=== PATIENT | female | born 1970 | race Hispanic/Latino ===

== ENCOUNTER 2018-10-22 23:31 | Emergency (ER) | payer SELFPAY ==
[~2018-10-22] VITALS: Ht 149.9 cm; Wt 67.1 kg
--- OUTSIDE RECORDS SUMMARY | 2018-10-22 23:34 | XMS REPORT | Continuity of Care Document ---
Author Author [facility] [place] Interface Address Unknown Phone Unavailable Problems Problem Status Onset Date Classification Date Reported Comments Source Encounter for screening mammogram for malignant neoplasm of breast 03/18/2018 10/02/2018 MEGA Mcgregor N63 - UNSPECIFIED LUMP IN BREAST Active 09/12/2015 [facility] [place] R10.2 - PELVIC AND PERINEAL PAIN Active 07/12/2015 [facility] [place] Medications Medication Details Route Status Patient Instructions Ordering Provider Order Date Source Allergies, Adverse Reactions, Alerts Substance Category Reaction Severity Reaction type Status Date Reported Comments Source Immunizations Immunization Date Given Site Status Last Updated Comments Source Results Order Name Results Value Reference Range Date Interpretation Comments Source Breast Mammo Scrn MATTHEW incl CAD MA Breast Mammo Scrn MATTHEW incl CAD MA BILATERAL DIGITAL SCREENING MAMMOGRAM WITH CAD: 03/15/2018 CLINICAL: Routine/Screening. Current study was evaluated with a Computer Aided Detection (CAD) system. COMPARISON:Comparison is made to exams dated: 09/27/2015 mammogram, 09/07/2015 mammogram, and 03/16/2014 mammogram - [facility]. TECHNIQUE: Mammographic views were obtained using digital acquisition. Current study was also evaluated with a Computer Aided Detection (CAD) system. FINDINGS: There are scattered fibroglandular densities in both breasts. Bilateral breast implants are stable. There is a benign appearing cyst in the right breast. There also are benign appearing calcifications in both breasts. No significant masses, calcifications, or other findings are seen in either breast. There has been no significant interval change. IMPRESSION: BENIGN RECOMMENDATION:There is no mammographic evidence of malignancy. A 1 year screening mammogram is recommended.(03/16/2019) This exam was interpreted at [id number] for MARIO Mcgregor, 14. Professional services are provided by the [facility]. Jam Aguilar M.D., jp/reyes:03/15/2018 13:11:39 Infrastructure Security Architect(s): Elzbieta Alatorre RT(R)(M), [facility] letter sent: BI-RADS 1/2 Mammogram BI-RADS: 2 Benign 03/15/2018 - - Read by: Jam Aguilar MD Dictated Date/time: 03/15/18 13:11 Electronically Signed by: Jam Aguilar MD 03/15/18 13:11 FINAL REPORT MEGA Mcgregor Breast Complete Uni US Breast Complete Uni US - BREAST COMPLETE UNI US/R ULTRASOUND OF RIGHT BREAST AND RIGHT AXILLA: 09/27/2015 CLINICAL: N63 Unspecified Lump In Breast. Comparison is made to exams dated: 09/27/2015 mammogram, 09/07/2015 mammogram and 03/16/2014 mammogram - [facility]. Color flow and real-time ultrasound of the right breast and axilla were performed. Right breast implant is present and intact by ultrasound. There is a benign 0.6 cm x 0.5 cm x 0.2 cm oval cyst in the right breast at 10 o'clock middle depth 5 cm from the nipple. This oval cyst is anechoic. This correlates with mammography findings. Color flow imaging demonstrates that there is no vascularity present. No suspicious findings are seen in the right breast. No abnormalities were seen sonographically in the right axilla. IMPRESSION: BENIGN There is no sonographic evidence of malignancy. The 0.6 cm x 0.5 cm x 0.2 cm oval cyst in the right breast is benign. A 1 year screening mammogram is recommended. The findings and recommendations were discussed with the patient at the time of the exam. Susan Collazo M.D. ms/:09/27/2015 15:26:32 Infrastructure Security Architect: Salud Nicole, [facility] This exam was dictated and interpreted by [id number] for [place]. letter sent: Benign Right Ultrasound BI-RADS: 2 Benign 09/27/2015 - - Read by: Susan Collazo MD Dictated Date/time: 09/27/15 15:26 Electronically Signed by: Susan Collazo MD 09/27/15 15:26 FINAL REPORT MARIO Mcgregor Digital Mammo DX Uni MA Digital Mammo DX Uni MA - DIGITAL MAMMO DX UNI MA/R UNILATERAL RIGHT DIGITAL DIAGNOSTIC MAMMOGRAM WITH CAD: 09/27/2015 CLINICAL: N63 Unspecified Lump In Breast. Current study was evaluated with a Computer Aided Detection (CAD) system. Comparison is made to exams dated: 09/07/2015 mammogram and 03/16/2014 mammogram - [facility]. There are scattered fibroglandular densities in the right breast. Right silicone implant is stable and intact. There is a 6 mm oval equal density asymmetry with an obscured margin in the right breast middle depth superior region seen on the mediolateral oblique view only 4 cm from the nipple. No other significant masses or calcifications are seen in the breast. IMPRESSION: INCOMPLETE: NEEDS ADDITIONAL IMAGING EVALUATION The 6 mm oval equal density asymmetry in the right breast is indeterminate. An ultrasound is recommended. Susan Collazo M.D. ms/penrad:09/27/2015 15:15:03 Infrastructure Security Architect: Aleyda MAGALLON(Jeramy)(), [facility] This exam was dictated and interpreted by [id number] for Balbir. Mammogram BI-RADS: 0 Indeterminate 09/27/2015 - - Read by: Susan Collazo MD Dictated Date/time: 09/27/15 15:15 Electronically Signed by: Susan Collazo MD 09/27/15 15:15 FINAL REPORT [facility] [place] Digital Mammo Screening Matthew MA Digital Mammo Screening Matthew MA - DIGITAL MAMMO SCREENING MATTHEW MA BILATERAL DIGITAL SCREENING MAMMOGRAM WITH CAD: 09/07/2015 CLINICAL: Z12.31 Encounter For Screening Mammogram For Malignant Neoplasm Of Breast. Current study was evaluated with a Computer Aided Detection (CAD) system. Comparison is made to exam dated: 03/16/2014 mammogram - [facility]. There are scattered fibroglandular densities in both breasts. There is a 0.8 cm asymmetry in the right breast middle depth central to the nipple seen on the mediolateral oblique view only 4 cm from the nipple. No other significant masses, calcifications, or other findings are seen in either breast. IMPRESSION: INCOMPLETE: NEEDS ADDITIONAL IMAGING EVALUATION The 0.8 cm asymmetry in the right breast is indeterminate. Additional views with possible ultrasound are recommended. SUMMARY: The staff from [facility] will contact the patient to schedule the additional studies. A separate report will be issued following interpretation of the additional studies. Lamine Snider M.D., cm/penrad:09/10/2015 08:42:13 Infrastructure Security Architect: Elzbieta MAGALLON (R)(Jasmeet), [facility] This exam was dictated and interpreted by [id number] for MARIO Mcgregor. letter sent: Additional Imaging Mammogram BI-RADS: 0 Indeterminate 09/07/2015 - - Read by: Storm Wintre MD Dictated Date/time: 09/10/15 08:42 Electronically Signed by: Storm Winter MD 09/10/15 08:42 FINAL REPORT AMRIO [place] Pelvis w Pelvis Transvaginal US Pelvis w Pelvis Transvaginal US ULTRASOUND OF THE PELVIS History: 44-year-old female with irregular menstrual cycles and pelvic pain. TECHNIQUE: Real-time schmid-scale imaging supplemented with color Doppler of the pelvis was performed transabdominally through the distended urinary bladder and with transvaginal technique. COMPARISON: 09/06/2012 FINDINGS: The uterus is anteverted and relatively large. Uterine dimensions are 10.3 x 5.1 x 6.0 cm. The endometrium is 1.6 cm thick. The myometrium has heterogeneous echo structure with a right intramural 0.9 x 0.7 x 0.7 cm nodule or fibroid. There is no free fluid in the pelvis. Both ovaries have adequate perfusion. Right ovary dimensions are 1.6 x 0.9 x 1.7 cm. Left ovary dimensions are 1.9 x 2.9 x 1.7 cm. The left ovary has a dominant 1.6 cm follicle. IMPRESSION: Anteverted uterus with a 0.9 cm right intramural fibroid. The adnexal exam is normal with a left ovarian 1.6 cm follicle. 09/07/2015 - - Read by: Eric Reeves MD Dictated Date/time: 09/07/15 14:44 Electronically Signed by: Eric Reeves 09/07/15 14:51 FINAL REPORT MEGA [place] Spine lumbar series DX Spine lumbar series DX EXAMINATION: 1. Lumbar spine series 2. 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 There is a partially lumbarized S1 segment. There is normal alignment of the lumbar spine without listhesis. There is minimal L3-L4 and L4-L5 degenerative disc disease with intervertebral disc space narrowing and endplate spur formation. There are no pars interarticularis defects. There is no substantial facet osteoarthritis. The sacral ala are intact without displaced fractures of the sacrum identified. Multiple surgical clips are noted within the right upper quadrant of the abdomen. IMPRESSION: 1. Partially lumbarized S1 segment with minimal L3-L4 and mild L4-L5 degenerative disc disease. 2. No displaced fractures of the sacrum identified. 09/07/2015 - - Read by: Nick Andre MD Dictated Date/time: 09/07/15 13:31 Electronically Signed by: Nick Andre MD 09/07/15 13:35 FINAL REPORT MEGA Mcgregor Spine sacrum AP/Lat DX Spine sacrum AP/Lat DX EXAMINATION: 1. Lumbar spine series 2. 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 There is a partially lumbarized S1 segment. There is normal alignment of the lumbar spine without listhesis. There is minimal L3-L4 and L4-L5 degenerative disc disease with intervertebral disc space narrowing and endplate spur formation. There are no pars interarticularis defects. There is no substantial facet osteoarthritis. The sacral ala are intact without displaced fractures of the sacrum identified. Multiple surgical clips are noted within the right upper quadrant of the abdomen. IMPRESSION: 1. Partially lumbarized S1 segment with minimal L3-L4 and mild L4-L5 degenerative disc disease. 2. No displaced fractures of the sacrum identified. 09/07/2015 - - Read by: Nick Andre MD Dictated Date/time: 09/07/15 13:31 Electronically Signed by: Nick Andre MD 09/07/15 13:35 FINAL REPORT MEGA Mcgregor Chest 2 views DX Chest 2 views DX CHEST PA AND LATERAL History: 44-year-old female with cough Comparison: None Findings: Lungs: The lungs are partial expanded without an acute consolidation or infiltrate. Pleura: No pleural effusion. Mediastinum and cande: Unremarkable. Heart size: Normal. Skeletal: Unremarkable. IMPRESSION: There is no acute cardio pulmonary abnormality. 09/07/2015 - - Read by: Eric Reeves MD Dictated Date/time: 09/07/15 13:43 Electronically Signed by: Eric Reeves 09/07/15 13:44 FINAL REPORT MEGA Mcgregor Digital Mammo Screening Matthew MA Digital Mammo Screening Matthew MA - DIGITAL MAMMO SCREENING MATTHEW MA BILATERAL DIGITAL SCREENING MAMMOGRAM WITH CAD: 03/16/2014 CLINICAL: Annual Screening. Current study was evaluated with a Computer Aided Detection (CAD) system. No prior exams were available for comparison. There are scattered fibroglandular densities in both breasts. There is a benign calcification in the left breast. Bilateral breast implants are intact. No significant masses, calcifications, or other findings are seen in either breast. IMPRESSION: BENIGN There is no mammographic evidence of malignancy. A screening mammogram in one year is recommended. Michael jasmine/reyes:03/17/2014 07:34:37 Infrastructure Security Architect: Kamryn MAGALLON(R)(M), [facility] This exam was dictated and interpreted by [id number] for MARIO Mayes. letter sent: Normal exam Mammogram BI-RADS: 2 Benign 03/16/2014 - - Read by: Michael Aguilar MD Dictated Date/time: 03/17/14 07:34 Electronically Signed by: Michael Aguilar MD 03/17/14 07:34 FINAL REPORT MARIO Mcgregor Vital Signs Vital Sign Value Date Comments Source Encounters Location Location Details Encounter Type Encounter Number Reason For Visit Attending Provider ADM Date DC Date Status Source [facility] [place] [facility] [id number] Chris Leahy 03/16/2014 03/17/2014 [facility] [place] [facility] [place] [facility] [id number] Chris Leahy 09/07/2015 09/08/2015 ME[facility] [place] [facility] [place] [facility] [id number] Chris Leahy 09/27/2015 09/28/2015 MEGA Mcgregor [facility] [place] [facility] [id number] Chris Leahy 03/15/2018 03/16/2018 MARIO Mcgregor Procedures Procedure Code Date Perfomer Comments Source
--- OUTSIDE RECORDS SUMMARY | 2018-10-22 23:35 | XMS REPORT ---
Author Author Admin, [facility] Address [address] [place] [address] Phone Allergies, Adverse Reactions, Alerts Allergy Name Reaction Description Start Date Severity Status Provider SUDAFED Critical Active Michael Anthony MD Conditions or Problems Problem Name Problem Code Onset Date Status Entry Date Provider Comment Standard Description Annotate IUD removal V25.12 Active Chris Leahy MD Encounter for removal of intrauterine contraceptive device Sciatica 724.3 Active Michael Anthony MD Sciatica Annual gynecological examination V72.3 Active Chris Leahy MD Special investigations and examinations - Gynecological examination Cervix, screening for malignant neoplasm V76.2 Active Chris Leahy MD Screening for malignant neoplasms of the cervix Mammogram not high risk screening V76.12 Active Chris Leahy MD Other screening mammogram Screening examination for venereal disease V74.5 Active Chris Leahy MD Screening examination for venereal disease Mastodynia 611.71 Active Chris Leahy MD Mastodynia Medication List Medication Instructions Start Date Stop Date Generic Name NDC Status Provider Patient Instruction IBUPROFEN 800 MG ORAL TABLET 1 pill every 8 hours By Mouth prn IBUPROFEN [id number] Active Chris Leahy MD Active VICODIN 5-300 MG ORAL TABLET take one tab By Mouth Every 4-6 hrs as needed for pain HYDROCODONE-ACETAMINOPHEN 72606035324 Active Michael Anthony MD Active Vital Signs Date Name Value Unit Range Description blood pressure, diastolic 69 mm[Hg] BP griffin blood pressure, systolic 113 mm[Hg] BP sys height E&M 59 [in_us] Bdy height pulse rate E&M 82 /min Heart rate respiratory rate E&M 18 /min Resp rate temperature E&M 98.2 [degF] Body temperature weight E&M 150.40 [lb_av] Weight Measured blood pressure, diastolic 84 mm[Hg] BP griffin blood pressure, systolic 124 mm[Hg] BP sys height E&M 59 [in_us] Bdy height pulse rate E&M 66 /min Heart rate respiratory rate E&M 18 /min Resp rate temperature E&M 98.4 [degF] Body temperature weight E&M 151.38 [lb_av] Weight Measured Diagnostic Results Date Name Value Unit Range Description Lab Report: CBC With Differential/Platelet, Comp. Metabolic Panel (14), ... - Chemistry thyroid stimulating hormone, serum 1.270 u[iU]/mL 0.450-4.500 Office Visit: Annual Exam Female Rm 4 - Chemistry beta HCG, urine, semiquantitative negative Lab Report: CBC With Differential/Platelet, Comp. Metabolic Panel (14), ... - Chemistry very low density lipoproteins 20 mg/dL 5-40 hepatitis B surface antigen Negative Negative chloride, serum 102 mmol/L 96-106 urea nitrogen, blood 21 mg/dL 6-24 Lab Report: CBC With Differential/Platelet, Comp. Metabolic Panel (14), ... - Hematology mean corpuscular hemoglobin concentration, RBC 33.3 G/DL % 31.5-35.7 erythrocyte (RBC) count 4.84 X10E6/UL 10*6/mm3 3.77-5.28 Lab Report: CBC With Differential/Platelet, Comp. Metabolic Panel (14), ... - Serology hepatitis C antibody, serum <0.1 0.0-0.9 Lab Report: CBC With Differential/Platelet, Comp. Metabolic Panel (14), ... - Chemistry Absolute Neutrophils 4.0 X10E3/UL 10*3/uL 1.4-7.0 LDL cholesterol, serum 118 mg/dL 0-99 urea nitrogen/creatinine ratio, serum 25 9-23 Lab Report: CBC With Differential/Platelet, Comp. Metabolic Panel (14), ... - Hematology mean corpuscular volume, RBC 89 fL 79-97 Lab Report: CBC With Differential/Platelet, Comp. Metabolic Panel (14), ... - Chemistry HDL cholesterol, serum 70 mg/dL >39 Lab Report: CBC With Differential/Platelet, Comp. Metabolic Panel (14), ... - Hematology monocytes as percent of blood leukocytes 7 % Not Estab. Lab Report: CBC With Differential/Platelet, Comp. Metabolic Panel (14), ... - Chemistry albumin/globulin ratio, serum 1.8 1.2-2.2 creatinine, serum 0.83 mg/dL 0.57-1.00 cholesterol, serum 208 mg/dL 533-864 2676/10/08 bilirubin, serum, total 0.3 mg/dL 0.0-1.2 Lab Report: CBC With Differential/Platelet, Comp. Metabolic Panel (14), ... - Hematology Eosinophil Absolute Count 0.1 X10E3/UL 10*3/uL 0.0-0.4 Lab Report: Ct, Ng, Trich vag by JONNY - Lab chlamydia DNA probe Negative Negative Lab Report: CBC With Differential/Platelet, Comp. Metabolic Panel (14), ... - Chemistry aspartate aminotransferase (SGOT), serum 28 U/L 0-40 Lab Report: CBC With Differential/Platelet, Comp. Metabolic Panel (14), ... - Hematology red blood cell distribution width 13.5 % 12.3-15.4 leukocyte count, blood 6.7 X10E3/UL 10*3/mm3 3.4-10.8 Lab Report: CBC With Differential/Platelet, Comp. Metabolic Panel (14), ... - Chemistry potassium, serum 4.3 mmol/L 3.5-5.2 albumin, serum 4.9 g/dL 3.5-5.5 immature granulocytes, percentage of total cells, blood 0 % Not Estab. Lab Report: CBC With Differential/Platelet, Comp. Metabolic Panel (14), ... - Hematology lymphocyte count, blood, automated 2.1 X10E3/UL 10*3/mm3 0.7-3.1 hematocrit, blood 43.0 % 34.0-46.6 Lab Report: Ct, Ng, Trich vag by JONNY - Microbiology Neisseria gonorrhoeae DNA probe Negative Negative Lab Report: CBC With Differential/Platelet, Comp. Metabolic Panel (14), ... - Chemistry sodium, serum 142 mmol/L 134-144 Lab Report: CBC With Differential/Platelet, Comp. Metabolic Panel (14), ... - Hematology neutrophils as percent of blood leukocytes 60 % Not Estab. basophils as percent of blood leukocytes 0 % Not Estab. Lab Report: CBC With Differential/Platelet, Comp. Metabolic Panel (14), ... - Serology rapid plasma reagin antibody, serum Non Reactive Non Reactive Lab Report: CBC With Differential/Platelet, Comp. Metabolic Panel (14), ... - Chemistry carbon dioxide, venous blood 23 mmol/L 20-29 triglyceride, serum, fasting 99 mg/dL 0-149 calcium, serum 9.6 mg/dL 8.7-10.2 alanine aminotransferase (SGPT), serum 19 U/L 0-32 Lab Report: CBC With Differential/Platelet, Comp. Metabolic Panel (14), ... - Hematology mean corpuscular hemoglobin, RBC 29.5 pg 26.6-33.0 Lab Report: CBC With Differential/Platelet, Comp. Metabolic Panel (14), ... - Chemistry protein, total, serum 7.6 g/dL 6.0-8.5 alkaline phosphatase, serum 54 U/L 39-117 Lab Report: CBC With Differential/Platelet, Comp. Metabolic Panel (14), ... - Hematology hemoglobin, blood 14.3 g/dL 11.1-15.9 lymphocytes as percent of blood leukocytes 31 % Not Estab. Lab Report: CBC With Differential/Platelet, Comp. Metabolic Panel (14), ... - Genetics/fertility eGFR if 96 mL/min/1.73m2 >59 Lab Report: CBC With Differential/Platelet, Comp. Metabolic Panel (14), ... - Hematology basophil count, absolute 0.0 x10E3/uL 0.0-0.2 Lab Report: CBC With Differential/Platelet, Comp. Metabolic Panel (14), ... - Chemistry globulin, serum 2.7 1.5-4.5 Estimated Glomerular Filtration Rate (calc) 84 mL/min/1.73m2 >59 Lab Report: CBC With Differential/Platelet, Comp. Metabolic Panel (14), ... - Hematology eosinophils as percent of blood leukocytes 2 % Not Estab. Lab Report: CBC With Differential/Platelet, Comp. Metabolic Panel (14), ... - Chemistry blood glucose, random 92 mg/dL 65-99 Lab Report: CBC With Differential/Platelet, Comp. Metabolic Panel (14), ... 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
--- OUTSIDE RECORDS SUMMARY | 2018-10-22 23:35 | XMS REPORT ---
Author Author [facility] Address Unknown Phone Unavailable Care Team Providers Care Rn Medical Surgical Name Role Phone Unavailable Unavailable Problems This patient has no known problems. Allergies, Adverse Reactions, Alerts This patient has no known allergies or adverse reactions. Medications This patient has no known medications.
--- OUTSIDE RECORDS SUMMARY | 2018-10-22 23:35 | XMS REPORT | Summary of Care ---
Author Author [facility] [place] Organization [facility] [place] Address Unknown Phone Unavailable Encounter [facility] Encntr_alinano(FIN) [id number] Date(s): 09/27/15 - 09/27/15 [facility] [place] [address] [place], [place] [address] [phone] Discharge Disposition: Home Attending Physician: Chris Leahy MD Vital Signs No data available for this section Problem List No data available for this section Allergies, Adverse Reactions, Alerts No data available for this section Medications No data available for this section Results No data available for this section Immunizations No data available for this section Procedures No data available for this section Social History No data available for this section Assessment and Plan No data available for this section
--- OUTSIDE RECORDS SUMMARY | 2018-10-22 23:35 | XMS REPORT | Summary of Care ---
Author Author [facility] [place] Organization [facility] [place] Address Unknown Phone Unavailable Encounter [facility] Encntr_gladys(FIN) [id number] Date(s): 03/15/18 - 03/15/18 [facility] [place] [address] [place] [address] [phone] Encounter Diagnosis Encounter for screening mammogram for malignant neoplasm of breast (Final) - 03/18/18 Discharge Disposition: Home or Self Care Attending Physician: Chris Leahy MD Referring Physician: Chris Leahy MD Vital Signs No [...]
--- OUTSIDE RECORDS SUMMARY | 2018-10-22 23:35 | XMS REPORT | Summary of Care ---
Author Organization Unknown Address Unknown Phone Unavailable Encounter [facility] Encntr_gladys([facility]) [id number] Date(s): 03/16/14 - 03/16/14 [facility] - [address] [address] [place] Discharge Disposition: Home Physician Attending: Chris Leahy MD Reason for Visit V76.12 - SCREEN MAMMOGRA Problem List No data available for this section Allergies, Adverse Reactions, Alerts No data available for this section Medications No data available for this section Medications Administered During Your Visit No data available for this section Immunizations No data available for this section
== END 2018-10-22 23:57 | disposition left against medical advice (07) ==
LOC: ER 23:31
DX: R05 Cough (principal)

== ENCOUNTER → 2020-04-03 | Outpatient (CLI) | payer OTHER ==
--- NOTE | 2020-04-03 09:38 | Diagnostic Imaging Report ---
EXAMINATION: CHEST 2 VIEWS INDICATION: Shortness of breath. Palpitations. History of COVID 19 positive test ^[id number] ^[id number] ^SHORTNESS OF BREATH COMPARISON: None FINDINGS: TUBES and LINES: None. LUNGS: Perihilar peribronchial hazy opacity could be due to bronchitis. No focal lung consolidation. PLEURA: No pleural effusion or pneumothorax. HEART AND MEDIASTINUM: The cardiomediastinal silhouette is unremarkable. BONES AND SOFT TISSUES: No acute osseous lesion. Soft tissues are unremarkable. Surgical clips in the right upper abdomen. Breast implants. UPPER ABDOMEN: No free air under the diaphragm. IMPRESSION: Perihilar peribronchial hazy opacity could be due to bronchitis. No focal lung consolidation. Signed by: Dr. Agusto Varela M.D. on 04/03/2020 9:35 AM
== END ==
LOC: RAD 08:51
PROVIDERS: ATTEND Internal Medicine
DX: R06.02 Shortness of breath (principal)
CPT/HCPCS: 71046

== ENCOUNTER → 2020-09-20 | Outpatient (CLI) | payer MEDICARE ==
[~2020-09-20] MED LIST: OMEPRAZOLE40 MG PO; PANTOPRAZOLE SO40 MG PO; SYMBICORT 16010.2 GM INH
== END ==
LOC: MAMMO 08:21
PROVIDERS: ATTEND Internal Medicine
DX: S20.02XD Contusion of left breast, subsequent encounter (principal); S20.01XD Contusion of right breast, subsequent encounter
CPT/HCPCS: 77066

== ENCOUNTER → 2020-10-12 | Day surgery (SDC) | payer BC, MEDICARE ==
[2020-10-08 14:26] LABS: BASOPHILS # (AUTO) 0.1 (0.0-0.1); BASOPHILS % 0.8 % (0.0-1.0); EOSINOPHILS # (AUTO) 0.1 (0.0-0.4); EOSINOPHILS % 1.7 % (0.0-6.0); HEMATOCRIT 38.1 % (34.2-44.1); HEMOGLOBIN 12.4 g/dL (12.0-16.0); LYMPHOCYTES # (AUTO) 1.9 (1.0-3.2); LYMPHOCYTES % 31.8 % (18.0-39.1); MEAN CORPUSCULAR HEMOGLOBIN 30.2 pg (28-32); MEAN CORPUSCULAR HGB CONC 32.5 g/dL (31-35); MEAN CORPUSCULAR VOLUME 92.7 fL (81-99); MONOCYTES # (AUTO) 0.5 (0.2-0.8); NEUTROPHILS # (AUTO) 3.5 (2.1-6.9); NEUTROPHILS % 57.4 % (38.7-80.0); PLATELET COUNT 271 x10e3/uL (140-360); RED BLOOD COUNT 4.11 x10e6/uL (3.6-5.1); RED CELL DISTRIBUTION WIDTH 12.7 % (11.7-14.4)
[~2020-10-12] MED LIST changes: +KETAMINE HCL INJ 50 MG/ML 10 ML VIAL ONE; +LIDOCAINE HCL 2% LOCAL INJ 5 ML SDV VIAL INJ ONE; +MIDAZOLAM HCL 2 MG/2 ML VIAL ONE; +PANTOPRAZOLE 40 MG 10ML VIAL ONE; +PROPOFOL IV EMULSION 10 MG/ML 20 ML VIAL ONE
[2020-10-12 11:20] VITALS: BP 120/89
[2020-10-12 14:30] LABS: WBC,FECAL (FECAL LACTOFERRIN) NEGATIVE (NEGATIVE)
[2020-10-13 13:14] LABS: C DIFFICILE TOXIN A&B AMP PROB NEGATIVE (NEGATIVE)
== END | disposition home or self-care (01) ==
LOC: DX 09-25 11:52 → ENDO 09-28 11:52 → DX 09-28 11:52 → OR 09-28 13:53 → ENDO 11:52 → EDSTATUS 11-28 14:30
PROVIDERS: ATTEND Internal Medicine Gastroenterology
DX: K92.1 Melena (principal); K59.00 Constipation, unspecified; R11.2 Nausea with vomiting, unspecified; Z01.810 Encounter for preprocedural cardiovascular examination; Z01.812 Encounter for preprocedural laboratory examination; Z20.822 Contact with and (suspected) exposure to COVID-19; Z53.09 Procedure and treatment not carried out because of other contraindication
CPT/HCPCS: 36415; 43239; 43450; 45378; 45380; 81025; 83630; 83993; 85025; 87045; 87177; 87328; 87493; 93005; J2001; J2250; U0002

== ENCOUNTER → 2020-10-12 | Day surgery (SDC) | payer BC, MEDICARE ==
[~2020-10-12] MED LIST changes: -KETAMINE HCL INJ 50 MG/ML 10 ML VIAL ONE; -LIDOCAINE HCL 2% LOCAL INJ 5 ML SDV VIAL INJ ONE; -MIDAZOLAM HCL 2 MG/2 ML VIAL ONE; -PANTOPRAZOLE 40 MG 10ML VIAL ONE; -PROPOFOL IV EMULSION 10 MG/ML 20 ML VIAL ONE
== END | disposition home or self-care (01) ==
LOC: OR 12:06
PROVIDERS: ATTEND Internal Medicine Gastroenterology
DX: K29.50 Unspecified chronic gastritis without bleeding (principal); K31.7 Polyp of stomach and duodenum; K52.9 Noninfective gastroenteritis and colitis, unspecified; K21.9 Gastro-esophageal reflux disease without esophagitis; K20.90 Esophagitis, unspecified without bleeding; K44.9 Diaphragmatic hernia without obstruction or gangrene; K59.00 Constipation, unspecified; K31.89 Other diseases of stomach and duodenum; K62.89 Other specified diseases of anus and rectum; K64.8 Other hemorrhoids; J45.909 Unspecified asthma, uncomplicated; E78.5 Hyperlipidemia, unspecified; R00.1 Bradycardia, unspecified; F41.9 Anxiety disorder, unspecified; Z88.8 Allergy status to other drugs, medicaments and biological substances; Z86.16 Personal history of COVID-19

== ENCOUNTER → 2024-11-24 | Outpatient (REF) | payer OTHER | LOC: MAMMO 08:29 | PROVIDERS: ATTEND Obstetrics & Gynecology | DX: Z12.31 Encounter for screening mammogram for malignant neoplasm of breast (principal) | CPT/HCPCS: 77067 ==